=== PATIENT | male | born 1960 | race African-American/Black ===

== ENCOUNTER 2016-10-24 11:57 | Inpatient (IN) | payer OTHER ==
[2016-10-24 14:10] VITALS: BMI 28.9
--- NOTE | 2016-10-24 16:59 | HP ---
Admission ROS [facility] - [facility] Chief Complaint: I WANT TO GO TO REHAB Allergies/Adverse Reactions: Allergies Allergy/AdvReac Type Severity Reaction Status Date / Time No Known Allergies Allergy Verified 10/24/16 16:30 History of Present Illness: 56 YEARS OLD MALE WITH LONG HISTORY OF OPIOID DEPENDENCE, HAS DIABETES II HYPERTENSION GERD AND DEPRESSION IS ADMITTED TO REHAB Exam Limitations: No Limitations - Ebola screening Have you traveled outside of the country in the last 21 days: No Have you had contact with anyone from an Ebola affected area: No Have you been sick,other than usual withdrawal symptoms: No Do you have a fever: No - Review of Systems Constitutional: No Symptoms Reported EENT: reports: No Symptoms Reported Respiratory: reports: No Symptoms reported Cardiac: reports: No Symptoms Reported GI: reports: No Symptoms Reported : reports: No Symptoms Reported Musculoskeletal: reports: No Symptoms Reported Integumentary: reports: No Symptoms Reported Neuro: reports: No Symptoms reported Endocrine: reports: No Symptoms Reported Hematology: reports: No Symptoms Reported Psychiatric: reports: Judgement Intact, Orientated x3, Depressed Other Systems: Reviewed and Negative Patient History - Patient Medical History Hx Anemia: No Hx Asthma: No Hx Chronic Obstructive Pulmonary Disease (COPD): No Hx Cancer: No Hx Cardiac Disorders: No Hx Congestive Heart Failure: No Hx Hypertension: Yes Hx Hypercholesterolemia: Yes Hx Pacemaker: No HX Cerebrovascular Accident: No Hx Seizures: No Hx Dementia: No Hx Diabetes: Yes Hx Gastrointestinal Disorders: Yes Hx Liver Disease: No Hx Genitourinary Disorders: No Hx Sexually Transmitted Disorders: No Hx Renal Disease (ESRD): No Hx Thyroid Disease: No Hx Human Immunodeficiency Virus (HIV): No Hx Hepatitis C: No Hx Depression: Yes Hx Suicide Attempt: No Hx Bipolar Disorder: No Hx Schizophrenia: No - Patient Surgical History Past Surgical History: No - PPD History Previous Implant?: Yes Documented Results: Negative w/o proof Implanted On Prior [facility] Admission?: No PPD to be Administered?: Yes - Smoking Cessation Smoking history: Never smoked Have you smoked in the past 12 months: No Hx Chewing Tobacco Use: No Initiated information on smoking cessation: No - Substance & Tx. History Hx Alcohol Use: No Hx Substance Use: Yes Substance Use Type: Opiates Hx Substance Use Treatment: Yes - Substances Abused Heroin Route: Inhalation Frequency: Daily Amount used: 12 BAGS Age of first use: 17 Date of Last Use: 10/17/16 Family Disease History - Family Disease History Family Disease History: Diabetes: Sister (), Heart Disease: Father ( ), Mother (), Respiratory: Brother (), Other: Father, Mother, Brother Admission Physical Exam [facility] - Vital Signs Vital Signs: Vital Signs - 24 hr 10/24/16 14:08 Temperature 96.4 F L Pulse Rate 56 L Respiratory 20 Rate Blood Pressure 117/70 - Physical General Appearance: Yes: No Apparent Distress, Nourished, Appropriately Dressed HEENTM: Yes: Hearing grossly Normal, Normal ENT Inspection, Normocephalic, Normal Voice Respiratory: Yes: Chest Non-Tender, Lungs Clear, Normal Breath Sounds, No Respiratory Distress, No Accessory Muscle Use Neck: Yes: Supple, Trachea in good position Breast: Yes: Breasts Symetrical Cardiology: Yes: Regular Rhythm, S1, S2, Bradycardia Abdominal: Yes: Non Tender, Soft Genitourinary: Yes: Within Normal Limits Back: Yes: Normal Inspection Musculoskeletal: Yes: full range of Motion, Gait Steady Extremities: Yes: Normal Inspection, Normal Range of Motion, Non-Tender Neurological: Yes: Fully Oriented, Alert, Motor Strength 5/5, Normal Response, Depressed Affect Integumentary: Yes: Warm Lymphatic: Yes: Within Normal Limits - Diagnostic (1) Opioid dependence with withdrawal Current Visit: Yes Status: Acute (2) Diabetes mellitus, type II, insulin dependent Current Visit: Yes Status: Chronic Comment: TAKING METFORMIN AND GLYBURIDE UNKNOWN DOSAGE (3) Hypertension Current Visit: Yes Status: Chronic Qualifiers: Hypertension type: essential hypertension Qualified Code(s): I10 - Essential (primary) hypertension Comment: UNKNOWN MEDICATION (4) Hyperlipidemia Current Visit: Yes Status: Chronic Qualifiers: Hyperlipidemia type: pure hypercholesterolemia Qualified Code(s): E78.00 - Pure hypercholesterolemia, unspecified; E78.0 - Pure hypercholesterolemia Comment: UNKNOWN MEDICATION (5) GERD (gastroesophageal reflux disease) Current Visit: Yes Status: Chronic Qualifiers: Esophagitis presence: without esophagitis Qualified Code(s): K21.9 - Gastro-esophageal reflux disease without esophagitis (6) Depression (emotion) Current Visit: Yes Status: Suspected Qualifiers: Depression Type: dysthymia Qualified Code(s): F34.1 - Dysthymic disorder Cleared for Admission [facility] - Detox or Rehab [facility] Level of Care: Observation Bed Detox Regimen/Protocol: Not Applicable Claeared for Rehab Admission: Yes [facility] Breath Alcohol Content Breath Alcohol Content: 0 Urine Drug Screen - Results Drug Screen Negative: No Urine Drug Screen Results: BZO-Benzodiazepines, MTD-Methadone
[2016-10-24] MEDS ORDERED: MAGNESIUM HYDROX 2400MG/30ML ORAL SUSPENSION 30 ML CUP PO PRN (17:04)
[2016-10-24] MEDS ORDERED: guaiFENesin/D-METHORPHAN HB 10 ML UNIT-DOSE CUPS PO PRN (17:04)
[2016-10-24] MEDS ORDERED: P-EPHED 60MG/TRIPROLIDI 2.5MG TABLET PO PRN (17:04)
[2016-10-24] MEDS ORDERED: MAGNESIUM CITRATE 300 ML BOTTLE PO PRN (17:04)
[2016-10-24] MEDS ORDERED: MENTHOL/PHENOL 1 EACH UD MM PRN (17:04)
[2016-10-24] MEDS ORDERED: LOPERAMIDE HCL 2 MG CAPSULE PO PRN (17:04)
[2016-10-24] MEDS ORDERED: hydrOXYzine PAMOATE 50 MG CAPSULE (FP) PO PRN (17:04)
[2016-10-24] MEDS ORDERED: MAG HYDROX/AL HYDROX/SIMETH 30 ML UNIT-DOSE CUP PO PRN (17:04)
[2016-10-24] MEDS ORDERED: INSULIN (NOVOLOG) ASPART 100 UNITS/ML 10ML VIAL ONE (20:59)
[2016-10-24] MEDS: RANITIDINE HCL 150 MG TABLET (FP) PO SCH (21:00)
[2016-10-24] MEDS: INSULIN SLIDING SCALE (NOVOLOG) 1 VIAL SQ SCH (21:00)
[2016-10-24] MEDS: THIAMINE HCL 100 MG TABLET (FP) PO SCH (21:00)
[2016-10-24] MEDS: diphenhydrAMINE HCL 50 MG CAPSULE PO PRN (21:00)
[2016-10-25] MEDS: INSULIN SLIDING SCALE (NOVOLOG) 1 VIAL SQ SCH ×2 (06:36→11:26)
[2016-10-25] MEDS: RANITIDINE HCL 150 MG TABLET (FP) PO SCH ×2 (09:33→21:57)
[2016-10-25] MEDS: PRENATAL VITAMINS W/ FOLIC ACID TABLET (FP) PO SCH (09:33)
--- NOTE | 2016-10-25 09:51 | EKG ---
Test Reason : Blood Pressure : / mmHG Vent. Rate : 058 BPM Atrial Rate : 058 BPM P-R Int : 178 ms QRS Dur : 090 ms QT Int : 400 ms P-R-T Axes : 067 023 036 degrees QTc Int : 392 ms SINUS BRADYCARDIA LEFT ATRIAL ENLARGEMENT NO PREVIOUS ECGS AVAILABLE Confirmed by INDRA SUMNER MD ([id number]) on 10/25/2016 9:51:30 AM Referred By: Benjy DIGGS Confirmed By:INDRA SUMNER MD
[2016-10-25 10:19] LABS: URINE APPEARANCE CLEAR; URINE BILIRUBIN NEGATIVE (NEGATIVE); URINE BLOOD NEGATIVE (NEGATIVE); URINE COLOR LTYELLOW; URINE GLUCOSE (UA) NEGATIVE (NEGATIVE); URINE KETONE NEGATIVE (NEGATIVE); URINE LEUK ESTERASE NEGATIVE (NEGATIVE); URINE NITRITE NEGATIVE (NEGATIVE); URINE PROTEIN NEGATIVE (NEGATIVE); URINE UROBILINOGEN NEGATIVE E.U./dl (0.2-1.0)
[2016-10-25] MEDS ORDERED: INSULIN (NOVOLOG) ASPART 100 UNITS/ML 10ML VIAL ONE (10:21)
[2016-10-25 10:28] LABS: MCH 28.1 pg (25.7-33.7); MCHC 32.3 g/dl (32.0-35.9); MEAN PLT VOLUME 8.4 fl (7.5-11.1); PLATELET COUNT 251 K/MM3 (134-434); RDW 13.1 % (11.9-15.9); WHITE BLOOD COUNT 6.1 K/mm3 (4.0-10.0)
[2016-10-25 10:33] LABS: ALBUMIN 4.2 g/dl (3.4-5.0); CALCIUM 9.4 mg/dL (8.5-10.1)
[2016-10-25 10:38] LABS: BILIRUBIN,TOTAL 0.7 mg/dL (0.2-1.0); COCKROFT - GAULT 78.83; CREATININE 1.3 mg/dL (0.7-1.3); TOT PROT 7.9 g/dl (6.4-8.2)
[2016-10-25 13:23] LABS: HIV 1 & 2 AB NEGATIVE; HIV 1 AGp24 NEGATIVE
--- NOTE | 2016-10-25 14:44 | HP ---
Psychiatrist Admission - Data Date of interview: 10/25/16 Admission source: [facility] Identifying data: This is the first [facility] inpatient rehabilitation admission for this 56 year old male , he is domiciled, unemployed and supported by pension. Medical History: Type II DM, HTN, GERD, & hypercholesterolemia Psychiatric History: Patient reports has been in the treatment foe depression and anixety at [facility] outpatient clinic and was on Zoloft 50 mg po daily and Remeron 15 mg po hs, reports no history of psychiatric hospitalizations. Physical/Sexual Abuse/Trauma History: Denies Vital Signs: Vital Signs - 24 hr 10/25/16 10/25/16 10/25/16 00:30 03:30 06:47 Temperature 98.5 F Pulse Rate 61 Respiratory 18 18 18 Rate Blood Pressure 145/74 Allergies/Adverse Reactions: Allergies Allergy/AdvReac Type Severity Reaction Status Date / Time No Known Allergies Allergy Verified 10/24/16 16:30 Date of last physical exam: 10/24/16 Concur with the findings of this exam: Yes - Substance Abuse/Tx History Hx Alcohol Use: No Hx Substance Use: Yes Substance Use Type: Heroin (12 bags daily) Hx Substance Use Treatment: Yes - Admission Criteria Previous failed treatment: Yes Poor recovery environment: Yes Comorbidities: Yes Lacks judgement: Yes Mental Status Exam - Mental Status Exam Alert and Oriented to: Time, Place, Person Cognitive Function: Good Patient Appearance: Well Groomed Mood: Apathetic, Anxious, Irritable Affect: Mood Congruent Patient Behavior: Cooperative (but somewhat arogant) Speech Pattern: Clear Voice Loudness: Normal Thought Process: Goal Oriented Thought Disorder: Not Present Hallucinations: Denies Suicidal Ideation: Denies Homicidal Ideation: Denies Insight/Judgement: Fair Sleep: Fair Appetite: Good Muscle strength/Tone: Normal Gait/Station: Normal Psychiatric Findings - Problem List ([place] 1, 2,3) (1) Diabetes mellitus, type II, insulin dependent Current Visit: Yes Status: Chronic Comment: TAKING METFORMIN AND GLYBURIDE UNKNOWN DOSAGE (2) GERD (gastroesophageal reflux disease) Current Visit: Yes Status: Chronic Qualifiers: Esophagitis presence: without esophagitis Qualified Code(s): K21.9 - Gastro-esophageal reflux disease without esophagitis (3) Hyperlipidemia Current Visit: Yes Status: Chronic Qualifiers: Hyperlipidemia type: pure hypercholesterolemia Qualified Code(s): E78.00 - Pure hypercholesterolemia, unspecified; E78.0 - Pure hypercholesterolemia Comment: UNKNOWN MEDICATION (4) Hypertension Current Visit: Yes Status: Chronic Qualifiers: Hypertension type: essential hypertension Qualified Code(s): I10 - Essential (primary) hypertension Comment: UNKNOWN MEDICATION (5) Opioid dependence Current Visit: Yes Status: Acute (6) Mood disorder Current Visit: Yes Status: Acute - Initial Treatment Plan Initial Treatment Plan: will continue Remeron and Zoloft, monitor progress as needed
[2016-10-25] MEDS: diphenhydrAMINE HCL 50 MG CAPSULE PO PRN (21:57)
[2016-10-25] MEDS: THIAMINE HCL 100 MG TABLET (FP) PO SCH (21:57)
[2016-10-25] MEDS: MIRTAZAPINE 15 MG TABLET (FP) PO SCH (22:02)
[2016-10-26] MEDS: metFORMIN HCL 500 MG TABLET (FP) PO SCH (06:28)
[2016-10-26] MEDS: ASPIRIN COATED 81 MG TABLET.EC PO SCH (09:31)
[2016-10-26] MEDS: METOPROLOL SUCCINATE 50 MG TAB.SR.24H (FP) PO SCH (09:31)
[2016-10-26] MEDS: PRENATAL VITAMINS W/ FOLIC ACID TABLET (FP) PO SCH (09:31)
[2016-10-26] MEDS: amLODIPine BESYLATE 5 MG TABLET (FP) PO SCH (09:31)
[2016-10-26] MEDS: OMEGA-3 ACID ETHYL ESTERS (FATTY-ACIDS) 1 GM CAPSULE (FP) PO SCH (09:31)
[2016-10-26] MEDS: RANITIDINE HCL 150 MG TABLET (FP) PO SCH ×2 (09:31→21:11)
[2016-10-26] MEDS: SERTRALINE HCL 50 MG TABLET (FP) PO SCH (09:31)
[2016-10-26] MEDS: ROSUVASTATIN CA 20 MG TABLET (FP) PO SCH (09:31)
[2016-10-26] MEDS: THIAMINE HCL 100 MG TABLET (FP) PO SCH (21:11)
[2016-10-26] MEDS: diphenhydrAMINE HCL 50 MG CAPSULE PO PRN (21:11)
[2016-10-26] MEDS: MIRTAZAPINE 15 MG TABLET (FP) PO SCH (21:11)
[2016-10-27] MEDS: metFORMIN HCL 500 MG TABLET (FP) PO SCH (07:09)
[2016-10-27] MEDS: RANITIDINE HCL 150 MG TABLET (FP) PO SCH ×2 (09:33→21:41)
[2016-10-27] MEDS: ASPIRIN COATED 81 MG TABLET.EC PO SCH (09:33)
[2016-10-27] MEDS: OMEGA-3 ACID ETHYL ESTERS (FATTY-ACIDS) 1 GM CAPSULE (FP) PO SCH (09:33)
[2016-10-27] MEDS: SERTRALINE HCL 50 MG TABLET (FP) PO SCH (09:33)
[2016-10-27] MEDS: ROSUVASTATIN CA 20 MG TABLET (FP) PO SCH (09:33)
[2016-10-27] MEDS: amLODIPine BESYLATE 5 MG TABLET (FP) PO SCH (09:33)
[2016-10-27] MEDS: METOPROLOL SUCCINATE 50 MG TAB.SR.24H (FP) PO SCH (09:33)
[2016-10-27] MEDS: PRENATAL VITAMINS W/ FOLIC ACID TABLET (FP) PO SCH (09:33)
[2016-10-27] MEDS: MIRTAZAPINE 15 MG TABLET (FP) PO SCH (21:41)
[2016-10-27] MEDS: THIAMINE HCL 100 MG TABLET (FP) PO SCH (21:41)
[2016-10-27] MEDS: diphenhydrAMINE HCL 50 MG CAPSULE PO PRN (22:33)
[2016-10-28] MEDS: metFORMIN HCL 500 MG TABLET (FP) PO SCH (06:57)
[2016-10-28] MEDS: PRENATAL VITAMINS W/ FOLIC ACID TABLET (FP) PO SCH (09:30)
[2016-10-28] MEDS: amLODIPine BESYLATE 5 MG TABLET (FP) PO SCH (09:30)
[2016-10-28] MEDS: RANITIDINE HCL 150 MG TABLET (FP) PO SCH ×2 (09:30→21:10)
[2016-10-28] MEDS: OMEGA-3 ACID ETHYL ESTERS (FATTY-ACIDS) 1 GM CAPSULE (FP) PO SCH (09:30)
[2016-10-28] MEDS: SERTRALINE HCL 50 MG TABLET (FP) PO SCH (09:30)
[2016-10-28] MEDS: ROSUVASTATIN CA 20 MG TABLET (FP) PO SCH (09:31)
[2016-10-28] MEDS: METOPROLOL SUCCINATE 50 MG TAB.SR.24H (FP) PO SCH (09:31)
[2016-10-28] MEDS: ASPIRIN COATED 81 MG TABLET.EC PO SCH (09:31)
[2016-10-28] MEDS: diphenhydrAMINE HCL 50 MG CAPSULE PO PRN (21:10)
[2016-10-28] MEDS: THIAMINE HCL 100 MG TABLET (FP) PO SCH (21:10)
[2016-10-28] MEDS: MIRTAZAPINE 15 MG TABLET (FP) PO SCH (21:10)
[2016-10-29] MEDS: metFORMIN HCL 500 MG TABLET (FP) PO SCH (07:12)
[2016-10-29] MEDS: ACETAMINOPHEN 325 MG TABLET (FP) PO PRN (08:25)
[2016-10-29] MEDS: SERTRALINE HCL 50 MG TABLET (FP) PO SCH (09:46)
[2016-10-29] MEDS: ASPIRIN COATED 81 MG TABLET.EC PO SCH (09:46)
[2016-10-29] MEDS: OMEGA-3 ACID ETHYL ESTERS (FATTY-ACIDS) 1 GM CAPSULE (FP) PO SCH (09:46)
[2016-10-29] MEDS: RANITIDINE HCL 150 MG TABLET (FP) PO SCH ×2 (09:46→21:03)
[2016-10-29] MEDS: amLODIPine BESYLATE 5 MG TABLET (FP) PO SCH (09:46)
[2016-10-29] MEDS: PRENATAL VITAMINS W/ FOLIC ACID TABLET (FP) PO SCH (09:46)
[2016-10-29] MEDS: ROSUVASTATIN CA 20 MG TABLET (FP) PO SCH (09:47)
[2016-10-29] MEDS: METOPROLOL SUCCINATE 50 MG TAB.SR.24H (FP) PO SCH (09:47)
[2016-10-29] MEDS: diphenhydrAMINE HCL 50 MG CAPSULE PO PRN (21:03)
[2016-10-29] MEDS: MIRTAZAPINE 15 MG TABLET (FP) PO SCH (21:03)
[2016-10-29] MEDS: THIAMINE HCL 100 MG TABLET (FP) PO SCH (21:03)
[2016-10-30] MEDS: metFORMIN HCL 500 MG TABLET (FP) PO SCH ×2 (07:01→16:54)
[2016-10-30] MEDS ORDERED: ROSUVASTATIN CA 10 MG TABLET (FP) ONE (08:36)
[2016-10-30] MEDS: ASPIRIN COATED 81 MG TABLET.EC PO SCH (09:42)
[2016-10-30] MEDS: SERTRALINE HCL 50 MG TABLET (FP) PO SCH (09:42)
[2016-10-30] MEDS: OMEGA-3 ACID ETHYL ESTERS (FATTY-ACIDS) 1 GM CAPSULE (FP) PO SCH (09:42)
[2016-10-30] MEDS: PRENATAL VITAMINS W/ FOLIC ACID TABLET (FP) PO SCH (09:42)
[2016-10-30] MEDS: RANITIDINE HCL 150 MG TABLET (FP) PO SCH ×2 (09:42→21:47)
[2016-10-30] MEDS: amLODIPine BESYLATE 5 MG TABLET (FP) PO SCH (09:42)
[2016-10-30] MEDS: ACETAMINOPHEN 325 MG TABLET (FP) PO PRN (09:43)
[2016-10-30] MEDS: METOPROLOL SUCCINATE 50 MG TAB.SR.24H (FP) PO SCH (09:45)
[2016-10-30] MEDS: ROSUVASTATIN CA 20 MG TABLET (FP) PO SCH (09:45)
[2016-10-30] MEDS: diphenhydrAMINE HCL 50 MG CAPSULE PO PRN (21:47)
[2016-10-30] MEDS: MIRTAZAPINE 15 MG TABLET (FP) PO SCH (21:47)
[2016-10-30] MEDS: THIAMINE HCL 100 MG TABLET (FP) PO SCH (21:48)
[2016-10-31] MEDS: metFORMIN HCL 500 MG TABLET (FP) PO SCH ×2 (07:02→16:38)
[2016-10-31] MEDS: PRENATAL VITAMINS W/ FOLIC ACID TABLET (FP) PO SCH (10:02)
[2016-10-31] MEDS: OMEGA-3 ACID ETHYL ESTERS (FATTY-ACIDS) 1 GM CAPSULE (FP) PO SCH (10:02)
[2016-10-31] MEDS: ASPIRIN COATED 81 MG TABLET.EC PO SCH (10:02)
[2016-10-31] MEDS: RANITIDINE HCL 150 MG TABLET (FP) PO SCH ×2 (10:02→21:06)
[2016-10-31] MEDS: amLODIPine BESYLATE 5 MG TABLET (FP) PO SCH (10:02)
[2016-10-31] MEDS: METOPROLOL SUCCINATE 50 MG TAB.SR.24H (FP) PO SCH (10:02)
[2016-10-31] MEDS: SERTRALINE HCL 50 MG TABLET (FP) PO SCH (10:02)
[2016-10-31] MEDS: ROSUVASTATIN CA 20 MG TABLET (FP) PO SCH (10:03)
[2016-10-31] MEDS: ACETAMINOPHEN 325 MG TABLET (FP) PO PRN (10:03)
[2016-10-31] MEDS ORDERED: cloNIDine HCL 0.1 MG TABLET PO PRN (12:48)
--- NOTE | 2016-10-31 12:55 | PN ---
[facility] Progress Note Note: withdrawal symptom,insomnia,flexeril 10 mga po tid prn,clonidine 0.1 mg po bid , vistaril 50 mgs po hs for insomnia
[2016-10-31] MEDS: CYCLOBENZAPRINE HCL 10 MG TABLET (FP) PO PRN (16:39)
[2016-10-31] MEDS: THIAMINE HCL 100 MG TABLET (FP) PO SCH (21:06)
[2016-10-31] MEDS: MIRTAZAPINE 15 MG TABLET (FP) PO SCH (21:06)
[2016-10-31] MEDS: hydrOXYzine PAMOATE 50 MG CAPSULE (FP) PO SCH (21:07)
[2016-11-01] MEDS: metFORMIN HCL 500 MG TABLET (FP) PO SCH ×2 (07:14→16:46)
[2016-11-01] MEDS: METOPROLOL SUCCINATE 50 MG TAB.SR.24H (FP) PO SCH (09:33)
[2016-11-01] MEDS: amLODIPine BESYLATE 5 MG TABLET (FP) PO SCH (09:33)
[2016-11-01] MEDS: PRENATAL VITAMINS W/ FOLIC ACID TABLET (FP) PO SCH (09:33)
[2016-11-01] MEDS: ASPIRIN COATED 81 MG TABLET.EC PO SCH (09:33)
[2016-11-01] MEDS: RANITIDINE HCL 150 MG TABLET (FP) PO SCH ×2 (09:33→21:24)
[2016-11-01] MEDS: SERTRALINE HCL 50 MG TABLET (FP) PO SCH (09:33)
[2016-11-01] MEDS: ROSUVASTATIN CA 20 MG TABLET (FP) PO SCH (09:33)
[2016-11-01] MEDS: OMEGA-3 ACID ETHYL ESTERS (FATTY-ACIDS) 1 GM CAPSULE (FP) PO SCH (09:33)
[2016-11-01] MEDS: THIAMINE HCL 100 MG TABLET (FP) PO SCH (21:24)
[2016-11-01] MEDS: hydrOXYzine PAMOATE 50 MG CAPSULE (FP) PO SCH (21:24)
[2016-11-01] MEDS: MIRTAZAPINE 15 MG TABLET (FP) PO SCH (21:24)
[2016-11-01] MEDS: CYCLOBENZAPRINE HCL 10 MG TABLET (FP) PO PRN (21:24)
[2016-11-02] MEDS: metFORMIN HCL 500 MG TABLET (FP) PO SCH ×2 (07:15→16:52)
[2016-11-02] MEDS: PRENATAL VITAMINS W/ FOLIC ACID TABLET (FP) PO SCH (09:48)
[2016-11-02] MEDS: SERTRALINE HCL 50 MG TABLET (FP) PO SCH (09:48)
[2016-11-02] MEDS: METOPROLOL SUCCINATE 50 MG TAB.SR.24H (FP) PO SCH (09:48)
[2016-11-02] MEDS: RANITIDINE HCL 150 MG TABLET (FP) PO SCH ×2 (09:48→21:13)
[2016-11-02] MEDS: ASPIRIN COATED 81 MG TABLET.EC PO SCH (09:48)
[2016-11-02] MEDS: ROSUVASTATIN CA 20 MG TABLET (FP) PO SCH (09:48)
[2016-11-02] MEDS: amLODIPine BESYLATE 5 MG TABLET (FP) PO SCH (09:48)
[2016-11-02] MEDS: OMEGA-3 ACID ETHYL ESTERS (FATTY-ACIDS) 1 GM CAPSULE (FP) PO SCH (09:49)
[2016-11-02] MEDS: MIRTAZAPINE 15 MG TABLET (FP) PO SCH (21:13)
[2016-11-02] MEDS: hydrOXYzine PAMOATE 50 MG CAPSULE (FP) PO SCH (21:13)
[2016-11-02] MEDS: THIAMINE HCL 100 MG TABLET (FP) PO SCH (21:13)
[2016-11-03] MEDS: metFORMIN HCL 500 MG TABLET (FP) PO SCH ×2 (07:02→16:43)
[2016-11-03] MEDS: METOPROLOL SUCCINATE 50 MG TAB.SR.24H (FP) PO SCH (10:25)
[2016-11-03] MEDS: PRENATAL VITAMINS W/ FOLIC ACID TABLET (FP) PO SCH (10:26)
[2016-11-03] MEDS: ROSUVASTATIN CA 20 MG TABLET (FP) PO SCH (10:26)
[2016-11-03] MEDS: SERTRALINE HCL 50 MG TABLET (FP) PO SCH ×2 (10:26→10:29)
[2016-11-03] MEDS: OMEGA-3 ACID ETHYL ESTERS (FATTY-ACIDS) 1 GM CAPSULE (FP) PO SCH (10:26)
[2016-11-03] MEDS: amLODIPine BESYLATE 5 MG TABLET (FP) PO SCH (10:26)
[2016-11-03] MEDS: RANITIDINE HCL 150 MG TABLET (FP) PO SCH ×2 (10:26→21:01)
[2016-11-03] MEDS: ASPIRIN COATED 81 MG TABLET.EC PO SCH (10:26)
[2016-11-03] MEDS: MIRTAZAPINE 15 MG TABLET (FP) PO SCH (21:01)
[2016-11-03] MEDS: hydrOXYzine PAMOATE 50 MG CAPSULE (FP) PO SCH (21:01)
[2016-11-03] MEDS: THIAMINE HCL 100 MG TABLET (FP) PO SCH (21:01)
[2016-11-04] MEDS: metFORMIN HCL 500 MG TABLET (FP) PO SCH ×2 (06:13→16:51)
[2016-11-04] MEDS: PRENATAL VITAMINS W/ FOLIC ACID TABLET (FP) PO SCH (09:42)
[2016-11-04] MEDS: SERTRALINE HCL 50 MG TABLET (FP) PO SCH (09:42)
[2016-11-04] MEDS: amLODIPine BESYLATE 5 MG TABLET (FP) PO SCH (09:42)
[2016-11-04] MEDS: METOPROLOL SUCCINATE 50 MG TAB.SR.24H (FP) PO SCH (09:42)
[2016-11-04] MEDS: ASPIRIN COATED 81 MG TABLET.EC PO SCH (09:42)
[2016-11-04] MEDS: ROSUVASTATIN CA 20 MG TABLET (FP) PO SCH (09:42)
[2016-11-04] MEDS: OMEGA-3 ACID ETHYL ESTERS (FATTY-ACIDS) 1 GM CAPSULE (FP) PO SCH (09:42)
[2016-11-04] MEDS: RANITIDINE HCL 150 MG TABLET (FP) PO SCH ×2 (09:42→21:37)
--- NOTE | 2016-11-04 14:39 | PN ---
Psychiatric Progress Note Vital Signs: Vital Signs Period Temp Pulse Resp BP Sys/Perales Pulse Ox Last 24 Hr 97.4 F 84-94 16-18 124-137/79-81 Date of Session: 11/04/16 Chief Complaint:: Insomnia HPI: Patient addressing Opoid Dependence comorbid with Mood Disorder ROS: Type 2 DM, GERD, HTN, Hyperlipidemia Current Medications: Active Medications Generic Name Dose Route Start Last Admin Trade Name Freq PRN Reason Stop Dose Admin Acetaminophen 650 mg 10/24/16 17:04 10/31/16 10:03 Tylenol - PO 650 mg Q4H PRN Administration PAIN Al Hydroxide/Mg Hydroxide 30 ml 10/24/16 17:04 Mylanta Oral Suspension - PO Q6H PRN DYSPEPSIA Amlodipine Besylate 5 mg 10/26/16 10:00 11/04/16 09:42 Norvasc - PO 5 mg DAILY [facility] Administration Aspirin 81 mg 10/26/16 10:00 11/04/16 09:42 Ecotrin - PO 81 mg DAILY [facility] Administration Eucalyptus/Menthol/Phenol/Sorbitol 1 each 10/24/16 17:04 Cepastat Lozenge - MM Q4H PRN SORE THROAT Guaifenesin 10 ml 10/24/16 17:04 Robitussin Dm - PO Q6H PRN COUGH Hydroxyzine Pamoate 50 mg 10/24/16 17:04 Vistaril - PO Q4H PRN AGITATION Hydroxyzine Pamoate 50 mg 10/31/16 22:00 11/03/16 21:01 Vistaril - PO 50 mg HS [facility] Administration Loperamide HCl 4 mg 10/24/16 17:04 Imodium - PO Q6H PRN DIARRHEA Magnesium Citrate 300 ml 10/24/16 17:04 Citroma - PO Q48H PRN CONSTIPATION Magnesium Hydroxide 30 ml 10/24/16 17:04 Milk Of Magnesia - PO DAILY PRN CONSTIPATION Metformin HCl 500 mg 10/30/16 16:30 11/04/16 06:13 Glucophage - PO 500 mg BID@0700,1630 [facility] Administration Metoprolol Succinate 50 mg 10/26/16 10:00 11/04/16 09:42 Toprol Xl - PO 50 mg DAILY [facility] Administration Mirtazapine 15 mg 10/25/16 22:00 11/03/16 21:01 Remeron - PO 15 mg HS [facility] Administration Hvswy-0-Tots Ethyl Esters 1 gm 10/26/16 10:00 11/04/16 09:42 Lovaza - PO 1 gm DAILY [facility] Administration Multivit/Folic Acid/Iron 1 tab 10/25/16 10:00 11/04/16 09:42 Vitamins ([facility]) - PO 1 tab DAILY [facility] Administration Pseudoephedrine/Triprolidine 1 combo 10/24/16 17:04 Actifed - PO TID PRN NASAL CONGESTION Ranitidine HCl 150 mg 10/24/16 22:00 11/04/16 09:42 Zantac - PO 150 mg BID [facility] Administration Rosuvastatin Calcium 20 mg 10/26/16 10:00 11/04/16 09:42 Crestor - PO 20 mg DAILY [facility] Administration Sertraline HCl 50 mg 10/26/16 10:00 11/04/16 09:42 Zoloft - PO Not Given DAILY [facility] Thiamine HCl 100 mg 10/24/16 22:00 11/03/16 21:01 Vitamin B1 - PO 100 mg HS [facility] Administration Medication(s) Change(s): Increase Remeron dosage to 30 mg po HS Current Side Effect: No Lab tests ordered: Yes Lab tests reviewed: Yes Provider note:: Patient reports experiencing difficulty to sleep. 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 Requetst to increase Remeron dosage since he cannot take Trazadone Total face to face time:: 25 Mental Status Exam - Mental Status Exam Alert and Oriented to: Time, Place, Person Cognitive Function: Fair Patient Appearance: Well Groomed Mood: Hopeful Affect: Appropriate Patient Behavior: Cooperative Speech Pattern: Clear Voice Loudness: Normal Thought Process: Intact, Goal Oriented Thought Disorder: Not Present Hallucinations: Denies Insight/Judgement: Fair Sleep: Poorly Appetite: Fair Muscle strength/Tone: Normal Gait/Station: Normal Psychiatric Treatment Plan - Problem List (1) Opioid dependence Current Visit: Yes (2) Mood disorder Current Visit: Yes (3) Diabetes mellitus, type II, insulin dependent Current Visit: Yes Comment: TAKING METFORMIN AND GLYBURIDE UNKNOWN DOSAGE (4) GERD (gastroesophageal reflux disease) Current Visit: Yes Qualifiers: Esophagitis presence: without esophagitis Qualified Code(s): K21.9 - Gastro-esophageal reflux disease without esophagitis (5) Hyperlipidemia Current Visit: Yes Qualifiers: Hyperlipidemia type: pure hypercholesterolemia Qualified Code(s): E78.00 - Pure hypercholesterolemia, unspecified; E78.0 - Pure hypercholesterolemia Comment: UNKNOWN MEDICATION (6) Hypertension Current Visit: Yes Qualifiers: Hypertension type: essential hypertension Qualified Code(s): I10 - Essential (primary) hypertension Comment: UNKNOWN MEDICATION Initial treatment plan: 1) Discontinue Remeron 15 mg po HS. 2) Start Remeron 30 mg po HS for insomnia. 3) Monitor progress
[2016-11-04] MEDS: hydrOXYzine PAMOATE 50 MG CAPSULE (FP) PO SCH (21:37)
[2016-11-04] MEDS: THIAMINE HCL 100 MG TABLET (FP) PO SCH (21:37)
[2016-11-04] MEDS: MIRTAZAPINE 30 MG TABLET (FP) PO SCH (21:37)
[2016-11-05] MEDS: metFORMIN HCL 500 MG TABLET (FP) PO SCH ×2 (07:06→16:18)
[2016-11-05] MEDS: ROSUVASTATIN CA 20 MG TABLET (FP) PO SCH (09:47)
[2016-11-05] MEDS: ASPIRIN COATED 81 MG TABLET.EC PO SCH (09:47)
[2016-11-05] MEDS: RANITIDINE HCL 150 MG TABLET (FP) PO SCH ×2 (09:47→21:41)
[2016-11-05] MEDS: amLODIPine BESYLATE 5 MG TABLET (FP) PO SCH (09:47)
[2016-11-05] MEDS: METOPROLOL SUCCINATE 50 MG TAB.SR.24H (FP) PO SCH (09:47)
[2016-11-05] MEDS: SERTRALINE HCL 50 MG TABLET (FP) PO SCH (09:47)
[2016-11-05] MEDS: OMEGA-3 ACID ETHYL ESTERS (FATTY-ACIDS) 1 GM CAPSULE (FP) PO SCH (09:47)
[2016-11-05] MEDS: PRENATAL VITAMINS W/ FOLIC ACID TABLET (FP) PO SCH (09:47)
--- NOTE | 2016-11-05 10:00 | PN ---
Psychiatric Progress Note Vital Signs: Vital Signs Period Temp Pulse Resp BP Sys/Perales Pulse Ox Last 24 Hr 97.8 F 81-94 18-20 124-145/76-79 Date of Session: 11/05/16 Chief Complaint:: Discharge Note HPI: Patient addressing Opoid Dependence comorbid with Mood Disorder ROS: Type 2 DM, HTN, Hyperlipidemia, GERD were medically managed Current Medications: Active Medications Generic Name Dose Route Start Last Admin Trade Name Freq PRN Reason Stop Dose Admin Acetaminophen 650 mg 10/24/16 17:04 10/31/16 10:03 Tylenol - PO 650 mg Q4H PRN Administration PAIN Al Hydroxide/Mg Hydroxide 30 ml 10/24/16 17:04 Mylanta Oral Suspension - PO Q6H PRN DYSPEPSIA Amlodipine Besylate 5 mg 10/26/16 10:00 11/05/16 09:47 Norvasc - PO 5 mg DAILY [facility] Administration Aspirin 81 mg 10/26/16 10:00 11/05/16 09:47 Ecotrin - PO 81 mg DAILY [facility] Administration Eucalyptus/Menthol/Phenol/Sorbitol 1 each 10/24/16 17:04 Cepastat Lozenge - MM Q4H PRN SORE THROAT Guaifenesin 10 ml 10/24/16 17:04 Robitussin Dm - PO Q6H PRN COUGH Hydroxyzine Pamoate 50 mg 10/24/16 17:04 Vistaril - PO Q4H PRN AGITATION Hydroxyzine Pamoate 50 mg 10/31/16 22:00 11/04/16 21:37 Vistaril - PO 50 mg HS [facility] Administration Loperamide HCl 4 mg 10/24/16 17:04 Imodium - PO Q6H PRN DIARRHEA Magnesium Citrate 300 ml 10/24/16 17:04 Citroma - PO Q48H PRN CONSTIPATION Magnesium Hydroxide 30 ml 10/24/16 17:04 Milk Of Magnesia - PO DAILY PRN CONSTIPATION Metformin HCl 500 mg 10/30/16 16:30 11/05/16 07:06 Glucophage - PO 500 mg BID@0700,1630 [facility] Administration Metoprolol Succinate 50 mg 10/26/16 10:00 11/05/16 09:47 Toprol Xl - PO 50 mg DAILY [facility] Administration Mirtazapine 30 mg 11/04/16 22:00 11/04/16 21:37 Remeron - PO 30 mg HS [facility] Administration Psckp-5-Ompx Ethyl Esters 1 gm 10/26/16 10:00 11/05/16 09:47 Lovaza - PO 1 gm DAILY [facility] Administration Multivit/Folic Acid/Iron 1 tab 10/25/16 10:00 11/05/16 09:47 Vitamins ([facility]) - PO 1 tab DAILY [facility] Administration Pseudoephedrine/Triprolidine 1 combo 10/24/16 17:04 Actifed - PO TID PRN NASAL CONGESTION Ranitidine HCl 150 mg 10/24/16 22:00 11/05/16 09:47 Zantac - PO 150 mg BID [facility] Administration Rosuvastatin Calcium 20 mg 10/26/16 10:00 11/05/16 09:47 Crestor - PO 20 mg DAILY [facility] Administration Sertraline HCl 50 mg 10/26/16 10:00 11/05/16 09:47 Zoloft - PO Not Given DAILY [facility] Thiamine HCl 100 mg 10/24/16 22:00 11/04/16 21:37 Vitamin B1 - PO 100 mg HS [facility] Administration Current Side Effect: No Lab tests ordered: Yes Lab tests reviewed: Yes Provider note:: Patient will complete this program on 11/06/16. He has met his treatment goals and will continue to address his issues in outpatient treatment at [facility]. He verbalized understanding of the negative consequence of his addiction and recognizing the damage that he has done to himself. He responded well to Zoloft 50 mg po daily & Remeron 30 mg po HS. Scripts for 30 days supply of these medicationd will be electronically transmitted to [facility] at [address] [place] [address]. He is stable for discharge on 11/06/16 Total face to face time:: 35 Mental Status Exam - Mental Status Exam Alert and Oriented to: Time, Place, Person Cognitive Function: Fair Patient Appearance: Well Groomed Mood: Hopeful, Euthymic Affect: Appropriate Patient Behavior: Cooperative Speech Pattern: Clear Voice Loudness: Normal Thought Process: Intact, Goal Oriented Thought Disorder: Not Present Hallucinations: Denies Suicidal Ideation: Denies Homicidal Ideation: Denies Insight/Judgement: Fair Sleep: Fair Appetite: Good Muscle strength/Tone: Normal Gait/Station: Normal Psychiatric Treatment Plan - Problem List (1) Opioid dependence Current Visit: Yes (2) Mood disorder Current Visit: Yes (3) Diabetes mellitus, type II, insulin dependent Current Visit: Yes Comment: TAKING METFORMIN AND GLYBURIDE UNKNOWN DOSAGE (4) GERD (gastroesophageal reflux disease) Current Visit: Yes Qualifiers: Esophagitis presence: without esophagitis Qualified Code(s): K21.9 - Gastro-esophageal reflux disease without esophagitis (5) Hyperlipidemia Current Visit: Yes Qualifiers: Hyperlipidemia type: pure hypercholesterolemia Qualified Code(s): E78.00 - Pure hypercholesterolemia, unspecified; E78.0 - Pure hypercholesterolemia Comment: UNKNOWN MEDICATION (6) Hypertension Current Visit: Yes Qualifiers: Hypertension type: essential hypertension Qualified Code(s): I10 - Essential (primary) hypertension Comment: UNKNOWN MEDICATION Initial treatment plan: Patient will be discharged tomorrow and referred to [facility] for outpatient treatment
[2016-11-05] MEDS ORDERED: MIRTAZAPINE 15 MG TABLET (FP) ONE (20:00)
[2016-11-05] MEDS: hydrOXYzine PAMOATE 50 MG CAPSULE (FP) PO SCH (21:41)
[2016-11-05] MEDS: THIAMINE HCL 100 MG TABLET (FP) PO SCH (21:41)
[2016-11-05] MEDS: MIRTAZAPINE 30 MG TABLET (FP) PO SCH (21:43)
[2016-11-06 06:34] VITALS: BP 152/76; PULSE 75; TEMP 97.7
[2016-11-06] MEDS: metFORMIN HCL 500 MG TABLET (FP) PO SCH (07:11)
[2016-11-06] MEDS: amLODIPine BESYLATE 5 MG TABLET (FP) PO SCH (09:48)
[2016-11-06] MEDS: OMEGA-3 ACID ETHYL ESTERS (FATTY-ACIDS) 1 GM CAPSULE (FP) PO SCH (09:48)
[2016-11-06] MEDS: PRENATAL VITAMINS W/ FOLIC ACID TABLET (FP) PO SCH (09:48)
[2016-11-06] MEDS: RANITIDINE HCL 150 MG TABLET (FP) PO SCH (09:48)
[2016-11-06] MEDS: ASPIRIN COATED 81 MG TABLET.EC PO SCH (09:48)
[2016-11-06] MEDS: METOPROLOL SUCCINATE 50 MG TAB.SR.24H (FP) PO SCH (09:50)
== END 2016-11-06 09:50 | disposition home or self-care (01) | DRG 772 ==
LOC: YASAS 11:57 → Y3W 17:51
PROVIDERS: ADMIT Psychiatry & Neurology Psychiatry; ATTEND Psychiatry & Neurology Psychiatry
PROC: HZ42ZZZ Group Counseling for Substance Abuse Treatment, Cognitive-Behavioral (ICD-10-PCS; principal; 2016-10-24)
DX: F11.20 Opioid dependence, uncomplicated (principal); F39 Unspecified mood [affective] disorder; F34.1 Dysthymic disorder; E11.9 Type 2 diabetes mellitus without complications; E78.5 Hyperlipidemia, unspecified; I10 Essential (primary) hypertension; K21.9 Gastro-esophageal reflux disease without esophagitis; Z79.4 Long term (current) use of insulin; Z79.84 Long term (current) use of oral hypoglycemic drugs
CPT/HCPCS: 36415; 80053; 81003; 85027; 86593; 87389; 93005; 93010